=== PATIENT | male | born 1965 | race Two or more races ===

== ENCOUNTER 2019-09-18 10:35 | Emergency (ER) | payer BC ==
[~2019-09-18] VITALS: Ht 167.6 cm; Wt 69.5 kg
[2019-09-18 11:51] LABS: Basophils # (auto) 0 10 ^3/uL (0-0.2); Basophils % (auto) 0.6 % (0.0-2.0); Eosinophils # (auto) 0 10 ^3/uL (0-0.8); Eosinophils % (auto) 0.7 % (0.0-7.0); Hematocrit 45.5 % (41.0-53.0); Hemoglobin 15.7 g/dL (13.5-17.5); Lymphocytes # (auto) 0.9 10 ^3/uL (0.4-5.4); Lymphocytes % (auto) 15.4 % (10.0-50.0); Mean Corpuscular Hemoglobin 31.4 pg (28.0-32.0); Mean Corpuscular Hgb Conc. 34.5 g/dL (32.0-36.0); Mean Corpuscular Volume 91.1 fL (80.0-100.0); Monocytes # (auto) 0.7 10 ^3/uL (0-1.3); Monocytes % (auto) 11.5 % (0.0-12.0); Neutrophils # (auto) 4.4 10 ^3/uL (1.6-8.6); Neutrophils % (auto) 71.8 % (37.0-80.0); Nucleated Red Blood Cells % 0.9 %; Platelet Count (auto) 158 10^3/uL (140-450); Red Blood Cells 4.99 10^6/uL (4.5-5.90); White Blood Cell 6.1 10^3/uL (4.4-10.8)
[2019-09-18 12:03] LABS: Chloride 103 mmol/L (98-107); Potassium 4.1 mmol/L (3.5-5.1); Sodium 135 mmol/L (136-145)
[2019-09-18 12:07] LABS: Amylase 48 U/L (25-115); Lipase 153 U/L (73-393)
[2019-09-18 12:13] LABS: Alanine Aminotransferase 52 U/L (16-61); Albumin 3.7 g/dL (3.4-5.0); Alkaline Phosphatase 76 U/L (45-117); Anion Gap 5 (5-15); Aspartate Aminotransferase 24 U/L (15-37); BUN/Creatinine Ratio 10.9; Bilirubin, Total 0.9 mg/dL (0.2-1.0); Blood Urea Nitrogen 10 mg/dL (7-18); Calcium 9.5 mg/dL (8.5-10.1); Carbon Dioxide 27 mmol/L (21-32); GFR African American 110 mL/min; GFR Non-African American 91 mL/min; Glucose 95 mg/dL (74-106); Total Protein 8.5 g/dL (6.4-8.2)
[2019-09-18 14:20] VITALS: BP 122/80
== END 2019-09-18 18:58 | disposition home or self-care (01) ==
LOC: ER 10:35
DX: K21.9 Gastro-esophageal reflux disease without esophagitis (principal); M46.82 Other specified inflammatory spondylopathies, cervical region
CPT/HCPCS: 36415; 74176; 80053; 82150; 83690; 84484; 85025; 93005